=== PATIENT | male | born 1980 | race Two or more races ===

== ENCOUNTER → 2020-05-09 | Day surgery (SDC) | payer OTHER ==
[2020-05-09] VITALS (11 sets, daily range): BP systolic 114–145; BP diastolic 59–82
[~2020-05-09] VITALS: Ht 185.4 cm; Wt 115.7 kg
[~2020-05-09] MED LIST: Acetaminophen (Non formulary) 100 ML IV ONE; Atropine Sulfate 0.4mg/ml inj IVP PRN; Bupivacaine 0.25% Inj 30ml INJ ONE; Bupivacaine 0.5% Inj 30 ml vial INJ ONE; D5 1/2NS 1,000 ML IV SCH; DiphenhydrAMINE 50mg/ml Inj IVP PRN; Duramorph PF 5mg/10ml amp ONE; HYDROcodone/Acetamin 5/325 tab ORAL PRN; HYDROcodone/Acetamin 7.5/325 tab ORAL PRN; HYDROmorphone 1mg/ml Carpuject SUBQ PRN; Hydromorphone 0.5mg/0.5ml inj IVP PRN; Kenalog-40 1ml Vial ONE; Ketorolac 30mg Inj IV PRN; LORazepam Inj 2mg/ml 1ml IV PRN; LR 1000ml 1,000 ML IVLG SCH; LR 1000ml ONE; Labetalol 5mg/ml 20ml vial IV PRN; Lidocaine 1% 10mg/ml/Epi 0.005mg/ml 30ml vial INJ ONE; Lidocaine 1% MPF 10mg/ml 5ml ONE; Meperidine 25mg/1ml Inj (FOR RIGORS ONLY) IV PRN; Metoclopramide 10mg/2ml Inj IVP PRN; Midazolam 2mg/2ml Inj IVP PRN; NS Irrig 4000ml IRRIG ONE; Sodium Chloride 10ml vial INJ ONE; Tylenol #3 tab (300mg/30mg) ORAL PRN; ceFAZolin 1gm IVPB IVPB ONE; celeBREX 200mg Cap **SURGERY PATIENTS ONLY ORAL ONE; fentaNYL 100 mcg/2 mL IV ONE; fentaNYL 100 mcg/2 mL IV PRN; oxyCODONE HCL/Acetaminophen 5/325mg ORAL PRN; oxyCONTIN 20mg tab ORAL ONE
--- NOTE | 2020-05-09 07:09 | Immediate Post-Op Evaluation ---
Immediate Post-Op Evalulation Immediate Post-Op Evalulation Procedure: R Knee Arthroscopy Date of Evaluation: May 09, 2020 Time of Evaluation: 09:03 IV Fluids: 900 LR Blood Products: 0 Estimated Blood Loss: 25 Urinary Output: 0 Blood Pressure Systolic: 114 Blood Pressure Diastolic: 59 Pulse Rate: 78 Respiratory Rate: 16 O2 Sat by Pulse Oximetry: 99 Temperature (Fahrenheit): 98.1 Pain Score (1-10): 2 Nausea: No Vomiting: No Complications 0 Patient Status: awake, reacts, patent, none Hydration Status: adequate Dru Grams Ancef IV Given Within 1 Hr of Incision: Yes Time Given: 07:41 Herbert Reardon MD May 09, 2020 07:09
--- NOTE | 2020-05-09 07:09 | Anethesia Preoperative Eval ---
Anesthesia Pre-op PMH/ROS General Date of Evaluation: May 09, 2020 Time of Evaluation: 07:19 Anesthesiologist: Alexys ASA Score: ASA 3 Mallampati Score Class I : Soft palate, uvula, fauces, pillars visible Class II: Soft palate, uvula, fauces visible Class III: Soft palate, base of uvula visible Class IV: Only hard plate visible Mallampati Classification: Class II Surgeon: Darrin Diagnosis: R Knee Pain Surgical Procedure: R Knee Arthroscopy Anesthesia History: none Family History: no anesthesia problems Allergies: Coded Allergies: No Known Allergies (Unverified , 05/07/20) Medications: see eMAR Patient NPO?: Yes Past Medical History Cardiovascular: Reports: HTN, arrhythmia - AFib-Cardioverted, other - Pericard itis Gastrointestinal/Genitourinary: Reports: GERD - GI Ulcer Musculoskeletal/Integumentary: Reports: OA PSxH Narrative: Dental Implant Anesthesia Pre-op Phys. Exam Physician Exam Last Vital Signs Date Time Temp Pulse Resp B/P (MAP) Pulse Ox O2 Delivery O2 Flow Rate FiO2 05/09/20 05:37 Room Air 05/09/20 05:37 97.6 75 18 126/72 96 Constitutional: NAD Neurologic: CN 2-12 intact Cardiovascular: RRR Respiratory: CTA Gastrointestinal: S/NT/ND Airway Exam Mallampati Score: Class II MO: full ROM: limited Teeth: missing, intact Anesthesia Pre-op A/P Risk Assessment & Plan Assessment: ASA 3 Plan: GA, SED Status Change Before Surgery: No Pre-Antibiotics Dru Grams Ancef IV Given Within 1 Hr of Incision: Yes Time Given: 07:41 Herbert Reardon MD May 09, 2020 07:08
--- NOTE | 2020-05-09 07:10 | 48 Hour Post Anesthesia Eval ---
Post Anesthesia Evaluation Procedure: R Knee Arthroscopy Date of Evaluation: May 09, 2020 Time of Evaluation: 11:12 Blood Pressure Systolic: 138 0: 79 Pulse Rate: 63 Respiratory Rate: 18 Temperature (Fahrenheit): 98.4 O2 Sat by Pulse Oximetry: 99 Airway: patent Nausea: No Vomiting: No Pain Intensity: 2 Hydration Status: adequate Cardiopulmonary Status: Stable Mental Status/LOC: patient returned to baseline Follow-up Care/Observations: 0 Post-Anesthesia Complications: 0 Follow-up care needed: ready to discharge Herbert Reardon MD May 09, 2020 07:10
--- NOTE | 2020-05-09 07:31 | Pre-Procedure Note/Attestation ---
Pre-Procedure Note/Attestation Complete Prior to Procedure Planned Procedure: right Procedure Narrative: knee arthroscopy, medial menisectomy Indications for Procedure Pre-Operative Diagnosis: right knee medial meniscus tear Attestation I attest that I discussed the nature of the procedure; its benefits; risks and complications; and alternatives (and the risks and benefits of such alterna tives), prior to the procedure, with the patient (or the patient's legal account retention representative). I attest that, if there was a reasonable possibility of needing a blood transfusion, the patient (or the patient's legal account retention representative) was given the [facility] standardized written summary, pursuant to the Melvin Deb Blood Safety Act ([place] Health and Safety Code # 1645, as amended). I attest that I re-evaluated the patient just prior to the surgery and that there has been no change in the patient's H&P, except as documented below: Austen Clifford MD May 09, 2020 07:31
--- NOTE | 2020-05-09 07:32 | Operative Note - PDOC ---
Operative Note Operative Note Pre-op Diagnosis: right knee medial meniscus tear Procedure: see op report Post-op Diagnosis: same as pre-op plus Operative Findings: consistent w/pre-op dx studies Anesthesia: MAC Specimen: none Complications: none Condition: stable Estimated Blood Loss: none Implant(s) used?: No Austen Clifford MD May 09, 2020 07:32
--- NOTE | 2020-05-09 09:30 | Operative Note - Dictated ---
DATE OF OPERATION: 05/09/2020 PREOPERATIVE DIAGNOSIS: Right knee medial meniscus tear. POSTOPERATIVE DIAGNOSES: 1. Right knee radial tear of the posterior horn and middle body meniscus. 2. Grade 3 chondral damage medial femoral condyle. 3. Hypertrophic synovial tissue medial and lateral patellofemoral compartment. 4. Lateral meniscus tear involving the posterior horn and anterior body. 5. Grade 4 chondral damage trochlear groove. PROCEDURES: 1. Right knee arthroscopy and partial medial and lateral meniscectomy. 2. Synovectomy medial, lateral, and patellofemoral compartment. 3. Gentle chondroplasty medial and patellofemoral compartment. SURGEON: Austen Clifford MD. ANESTHESIA: MAC. INDICATION FOR PROCEDURE: The patient is a pleasant gentleman, who has had progressive right knee pain. He had an MRI, which showed a meniscal tear and elected to undergo right knee arthroscopy and medial meniscectomy. Risks, limitations, expectations, and complications of the procedure were discussed in detail. All questions addressed. DESCRIPTION OF PROCEDURE: After informed was obtained, the patient was brought to the operating room. The patient was placed under general anesthesia. Right leg was prepped and draped in a sterile manner. Time-out was performed. Inferolateral stab incision was then made. Trocar introduced into the patellofemoral compartment. There was hypertrophic synovial tissue making visualization difficult. Medial gutter as well as medial compartment was difficult to visualize. Medial working portal was established. Synovectomy of the medial compartment and lateral compartment was performed. Once the synovectomy was completed, access to medial compartment was possible and there was radial tear at the junction of the posterior horn and middle body of the meniscus. Partial meniscectomy using combination of teresita and biters was performed on the stable rim of the meniscus. There was grade chondral damage and 2 x 2 mm on the posterior femoral condyle. ACL was probed, noted to be intact. Lateral compartment was entered. There was a small tear of the posterior horn lateral meniscus as well as there was fraying and tearing of the posterior aspect of the anterior body of the lateral meniscus. A partial meniscectomy of the posterior horn and lateral meniscus was performed. There was some grade 2 chondral damage in the tibial plateau. Camera was then placed in the patellofemoral compartment. Once the synovectomy was completed, there was evidence of grade 3, grade 4 chondral damage in trochlear groove with adjacent grade 2 chondral damage in the patellofemoral compartment. At this point, the instruments were removed. Portal sites were closed using 3-0 Monocryl sutures. Steri-Strips and a sterile dressing were applied. ESTIMATED BLOOD LOSS: None. COMPLICATIONS: None. SPECIMENS: None. IMPLANTS: None. Austen Clifford M.D. DR: STEFANI JOB#: [id number] CC:
== END | disposition home or self-care (01) ==
LOC: SUR 05:06
DX: S83.241A Other tear of medial meniscus, current injury, right knee, initial encounter (principal); M67.261 Synovial hypertrophy, not elsewhere classified, right lower leg; S83.281A Other tear of lateral meniscus, current injury, right knee, initial encounter; X58.XXXA Exposure to other specified factors, initial encounter; Y92.9 Unspecified place or not applicable; I10 Essential (primary) hypertension; K21.9 Gastro-esophageal reflux disease without esophagitis; M19.90 Unspecified osteoarthritis, unspecified site
CPT/HCPCS: 29876; 29880; 29999; 94003; J0131; J0690; J1100; J1885; J2250; J2405; J2704; J3010; J3301; J3490; J7120; U0002; 94150